=== PATIENT | male | born 1950 ===

== ENCOUNTER 2022-08-19 07:38 | Inpatient (IN) ==
--- NOTE | 2022-08-16 09:46 | XRay Report ---
CLINICAL INFORMATION: Preop COMPARISON: None. TECHNIQUE: PA and lateral views were obtained. FINDINGS: The heart size, mediastinum and pulmonary vessels are unremarkable. The 10 mm relatively dense nodule overlying the left midlung and posterior eighth rib. This may be a bone island rather than a lung nodule. No definite pulmonary abnormalities.. There are no effusions. The bones and soft tissues are within normal limits. IMPRESSION: 10 mm left midlung nodule. It overlies the posterior left eighth rib and may represent bone island. Suggest left rib films Interpreted and Authenticated by: Nathaniel Pace 08/16/22
[2022-08-16 12:05] LABS: Basophils # (Auto) 0.06 K/mcL (0.00-0.30); Basophils % (Auto) 1.2 % (0.0-2.0); Eosinophils # (Auto) 0.14 K/mcL (0.00-0.70); Eosinophils % (Auto) 2.8 % (0.0-7.0); Hematocrit 45.7 % (40.1-51.0); Hemoglobin 16.1 g/dL (13.7-17.5); Lymphocytes # (Auto) 1.56 K/mcL (1.50-4.80); Lymphocytes % (Auto) 31.2 % (15.5-49.0); Mean Cell Volume 85.9 fL (80.0-100.0); Mean Corpuscular HGB Conc 35.2 g/dL (31.0-36.0); Mean Platelet Volume 8.9 fL (8.8-12.5); Monocytes # (Auto) 0.42 K/mcL (0.10-0.90); Monocytes % (Auto) 8.4 % (1.0-12.0); Neutrophils % (Auto) 56.2 % (38.0-78.0); Platelet Count 412 K/mcL (140-440); RBC 5.32 M/mcL (4.63-6.08); Red Cell Distribution Width 13.6 % (11.5-14.5)
[2022-08-16 12:11] LABS: Partial Thromboplastin Time 29.6 sec (20.0-37.0); Prothrombin Time 13.1 sec (11.9-14.5)
[2022-08-16 12:12] LABS: ALT/SGPT 21 U/L (<40); AST/SGOT 18 U/L (<40); Albumin 4.4 gm/dL (3.2-5.2); Albumin/Globulin Ratio 1.8 (1.0-2.3); Alkaline Phosphatase 91 U/L (39-117); Bilirubin,Total 0.4 mg/dL (0.1-1.0); Blood Urea Nitrogen 18 mg/dL (8-23); Calcium 9.1 mg/dL (8.6-10.4); Carbon Dioxide 22 mmol/L (22-30); Chloride 105 mmol/L (96-108); Globulin 2.5 gm/dL (2.2-3.7); Glomerular Filtration Rate 86; Glucose 93 mg/dL (70-105)
--- NOTE | 2022-08-17 07:31 | EKG ---
[facility] Test Date: 2022-08-16 Pat Name: Haile Miranda Department: [facility] Room: Gender: Male Instructional Leader: : 1950 Requested By: Chayo Dietrich Order Number: [id number] Reading MD: Delon Frankel Measurements Intervals Anderson Rate: 62 P: 34 WY: 169 QRS: -3 QRSD: 104 T: 48 QT: 405 QTc: 411 Interpretive Statements Sinus rhythm Minimal ST elevation, anterior leads Electronically Signed On 08-17-2022 7:31:53 PST by Delon Frankel /store/[email or web address]/[id number]
[2022-08-19] MEDS ORDERED: ONDANSETRON 4 MG/2 ML VIAL ONE (08:56)
[2022-08-19] MEDS ORDERED: PROPOFOL 200 MG/20 ML VIAL IV ONE ×2 (08:56→10:40)
[2022-08-19] MEDS ORDERED: LIDOCAINE HCL/PF 100 MG/5 ML SYRINGE IV ONE ×2 (08:56→10:40)
[2022-08-19] MEDS ORDERED: GLYCOPYRROLATE 0.2 MG/ML VIAL IV ONE ×2 (08:56→10:40)
[2022-08-19] MEDS ORDERED: CEFEPIME 2 GM VIAL IV ONE (09:21)
[2022-08-19] MEDS ORDERED: metroNIDAZOLE 500 MG/100 ML BAG IV ONE (09:23)
--- NOTE | 2022-08-19 10:11 | Brief Operative Note ---
Brief Operative Note Date of procedure: 08/19/22 Pre-op diagnosis: f/h colon polyps;f/h colon cancer Post-op diagnosis: same Procedure: colonoscopy; descending colon perforation at 80cm colon stricture;diverticulosis Grafts/Implants: No Anesthesia: MAC Findings: high grade stricture at 80cm would not allow pediatric scope, perforation occurred with the pediatric scope;patient prepared for emergency laparotomy and closure of perforation Complications: other Complications Description: perforation of colon at stricture at 80 cm(descending colon) Surgeon: Chayo Dietrich Estimated blood loss (cc): 0 Specimens Removed/Pathology: none sent Condition: stable Disposition: PACU
[2022-08-19] MEDS ORDERED: ROPIVACAINE HCL/PF 20 ML VIAL IJ ONE (10:40)
[2022-08-19] MEDS ORDERED: KETAMINE 50 MG/ML Syringe (ANEST) IV ONE (10:40)
[2022-08-19] MEDS ORDERED: MAGNESIUM SULFATE 2 GM/50 ML BAG IV ONE (10:40)
[2022-08-19] MEDS ORDERED: PHENYLephrine 1 MG/10 ML SYRINGE (ANEST) ONE (10:40)
[2022-08-19] MEDS ORDERED: fentaNYL 100 MCG/2 ML VIAL IV ONE (10:40)
[2022-08-19] MEDS ORDERED: SUGAMMADEX SODIUM 200 MG/2 ML VIAL IV ONE (10:40)
[2022-08-19] MEDS ORDERED: ROCURONIUM 10 MG/ML ML IV ONE (10:40)
[2022-08-19] MEDS ORDERED: DEXAMETHASONE 10 MG/ML VIAL ONE (10:40)
[2022-08-19] MEDS ORDERED: HYDROmorphone 1 MG/ML SYRINGE ONE (10:40)
[2022-08-19] MEDS ORDERED: MIDAZOLAM 2 MG/2 ML VIAL ONE (10:40)
[2022-08-19] MEDS ORDERED: SUCCINYLCHOLINE 20 MG/ML ML IV ONE (10:40)
[2022-08-19] MEDS ORDERED: fentaNYL 100 MCG/2 ML VIAL IV PRN (11:32)
[2022-08-19] MEDS ORDERED: NALOXONE HCL 0.4 MG/ML VIAL IV PRN (11:32)
[2022-08-19] MEDS ORDERED: LACTATED RINGERS 250 ML IV PRN (11:32)
[2022-08-19] MEDS ORDERED: HYDROmorphone 0.5 MG/0.5 ML SYRINGE IV PRN (11:32)
[2022-08-19] MEDS ORDERED: FLUMAZENIL 0.1 MG/ML ML IV PRN (11:32)
[2022-08-19] MEDS ORDERED: LABETALOL 5 MG/ML ML IV PRN (11:32)
[2022-08-19] MEDS ORDERED: ACETAMINOPHEN 1,000 MG/100 ML BAG IV ONE (11:32)
[2022-08-19] MEDS ORDERED: MEPERIDINE 25 MG/ML VIAL IV PRN (11:32)
[2022-08-19] MEDS ORDERED: METOPROLOL TARTRATE 5 MG/5 ML VIAL IV PRN (11:32)
[2022-08-19] MEDS ORDERED: ONDANSETRON 4 MG/2 ML VIAL IV PRN ×2 (11:32→12:05)
[2022-08-19] MEDS ORDERED: IPRATROPIUM/ALBUTEROL 3 ML AMPUL.NEB NEB PRN (11:32)
[2022-08-19] MEDS ORDERED: METHOCARBAMOL 1,000 MG/10 ML VIAL IV PRN (11:32)
[2022-08-19] MEDS ORDERED: LACTATED RINGERS 1,000 ML IV SCH (11:45)
[2022-08-19] MEDS ORDERED: PROMETHAZINE 25 MG/ML VIAL IV PRN (12:05)
--- NOTE | 2022-08-19 12:05 | Brief Operative Note ---
Brief Operative Note Date of procedure: 08/19/22 Pre-op diagnosis: perforated descending colon from colonoscopy Post-op diagnosis: other (perforated descending colon from colonoscopy) Procedure: exploratory laparotomy with closure of colon perforation;peritoneal lavage Grafts/Implants: No Anesthesia: GETA Findings: small opening descending colon without fecal contamination Complications: none Surgeon: Chayo Dietrich Estimated blood loss (cc): 0 Specimens Removed/Pathology: none sent Condition: stable Disposition: PACU
[2022-08-19] MEDS: 0.9 % SODIUM CHLORIDE 10 ML SYRINGE IV SCH ×2 (14:50→20:36)
[2022-08-19] MEDS: METOCLOPRAMIDE 10 MG/2 ML VIAL IV SCH ×2 (17:15→23:45)
[2022-08-19] MEDS: 0.9 % SODIUM CHLORIDE 1,000 ML IV SCH (17:15)
[2022-08-19] MEDS: CEFEPIME 1 GM VIAL IV SCH ×2 (17:15→23:45)
[2022-08-19] MEDS: metroNIDAZOLE 500 MG/100 ML BAG IV SCH ×2 (17:15→23:46)
[2022-08-19] MEDS: ACETAMINOPHEN 1,000 MG/100 ML BAG IV SCH (19:20)
[2022-08-19] MEDS: DOCUSATE SODIUM 100 MG CAPSULE PO SCH (20:36)
[2022-08-19] MEDS: SENNOSIDES 1 TABLET PO SCH (20:36)
[2022-08-19] MEDS ORDERED: traZODone HCL 50 MG TABLET PO PRN (21:00)
[2022-08-20] MEDS: 0.9 % SODIUM CHLORIDE 1,000 ML IV SCH ×4 (00:43→11:01)
[2022-08-20] MEDS: ACETAMINOPHEN 1,000 MG/100 ML BAG IV SCH ×3 (01:00→12:27)
[2022-08-20] MEDS: metroNIDAZOLE 500 MG/100 ML BAG IV SCH ×3 (05:43→18:32)
[2022-08-20] MEDS: METOCLOPRAMIDE 10 MG/2 ML VIAL IV SCH ×3 (05:44→17:52)
[2022-08-20] MEDS: CEFEPIME 1 GM VIAL IV SCH ×3 (05:44→23:03)
[2022-08-20] MEDS: 0.9 % SODIUM CHLORIDE 10 ML SYRINGE IV SCH ×2 (05:45→13:48)
[2022-08-20 06:21] LABS: Basophils # (Auto) 0.03 K/mcL (0.00-0.30); Basophils % (Auto) 0.2 % (0.0-2.0); Eosinophils # (Auto) 0.01 K/mcL (0.00-0.70); Eosinophils % (Auto) 0.1 % (0.0-7.0); Hematocrit 42.1 % (40.1-51.0); Hemoglobin 14.9 g/dL (13.7-17.5); Lymphocytes # (Auto) 1.81 K/mcL (1.50-4.80); Lymphocytes % (Auto) 13.8 % (15.5-49.0); Mean Cell Volume 85.9 fL (80.0-100.0); Mean Corpuscular HGB Conc 35.4 g/dL (31.0-36.0); Mean Platelet Volume 8.9 fL (8.8-12.5); Monocytes # (Auto) 0.92 K/mcL (0.10-0.90); Neutrophils % (Auto) 78.6 % (38.0-78.0); Platelet Count 331 K/mcL (140-440); Red Cell Distribution Width 13.7 % (11.5-14.5); WBC 13.1 K/mcL (4.5-11.0)
[2022-08-20] MEDS: HYDROmorphone 1 MG/ML SYRINGE IV PRN ×5 (06:38→20:55)
[2022-08-20 06:46] LABS: ALT/SGPT 16 U/L (<40); AST/SGOT 15 U/L (<40); Albumin 3.4 gm/dL (3.2-5.2); Albumin/Globulin Ratio 1.4 (1.0-2.3); Alkaline Phosphatase 53 U/L (39-117); Bilirubin,Direct < 0.2 mg/dL (0-0.3); Bilirubin,Total 0.8 mg/dL (0.1-1.0); Blood Urea Nitrogen 11 mg/dL (8-23); Calcium 8.5 mg/dL (8.6-10.4); Carbon Dioxide 21 mmol/L (22-30); Chloride 102 mmol/L (96-108); Globulin 2.5 gm/dL (2.2-3.7); Glomerular Filtration Rate 90; Glucose 98 mg/dL (70-105); Lactate Dehydrogenase 155 U/L (135-225); Phosphorous 3.4 mg/dL (2.5-4.5); Triglycerides 74 mg/dL (<150); Uric Acid 5.1 mg/dL (2.5-8.0)
[2022-08-20] MEDS: PANTOPRAZOLE 40 MG TABLET PO SCH (07:34)
[2022-08-20] MEDS: DOCUSATE SODIUM 100 MG CAPSULE PO SCH ×2 (08:40→20:55)
--- NOTE | 2022-08-20 13:41 | General Surgery Progress Note ---
SUBJECTIVE Subjective Patient information: Note initiated : 08/20/22 at 1:37 pm Service Date, if different from initiated Date: [] Patient: Haile Miranda 72 y/o M admitted on 08/19/22 for Colonoscopy/Post op complications. Chief Complaint: [] Principal diagnosis: Perforation of descending colon Interval history: Patient is doing well. He has no complaints. He has been afebrile. He denies any increase in abdominal pain. He denies any nausea. White blood count is 13.1, hemoglobin 14.9, hematocrit 42.4. Constitutional Vitals: Vital Signs Temp Pulse Resp BP Pulse Ox O2 Del Method O2 Flow Rate 98.7 F 62 16 136/83 97 Room Air 0 08/20/22 11:51 08/20/22 11:51 08/20/22 11:51 08/20/22 11:51 08/20/22 11:51 08/20/22 11:51 08/19/22 12:36 Period Temp Pulse Resp BP Sys/Obrien Pulse Ox O2 Del Method O2 Flow Rate Last 24 Hr 98.4 F-98.8 F 62-100 16-18 128-160/72-96 95-98 Room Air-Room Air Intake and Output 08/20/22 08/20/22 08/20/22 03:59 11:59 19:59 Intake Total 1400 1400 200 Output Total 1400 900 Balance 0 500 200 Weight 193 lb 9.6 oz Intake & Output: Intake & Output 08/20/22 08/20/22 08/20/22 03:59 11:59 19:59 Intake Total 1400 1400 200 Output Total 1400 900 Balance 0 500 200 Weight 193 lb 9.6 oz Intake: IV 1300 1200 200 Sodium Chloride 0.9% 1,000 ml @ 1000 1000 150 mls/hr IV .[id number] [facility] Rx#: [id number] Oral 100 200 Output: Void Amount 1400 900 Other: Urine Appearance Clear Clear Urine Color Yellow Yellow Urine Odor Normal Normal Stool Consistency Loose Neck Neck exam: Present normal inspection; Absent lymphadenopathy or tenderness Respiratory Respiratory exam: Present normal respiratory exam and CTAB Cardiovascular Cardiovascular exam: Present normal rate and rhythm, RRR, +S1 and +S2; Absent JVD GI/Abdominal GI/Abdominal exam: Present normal bowel sounds and soft; Absent distended Additional comments: Midline incision is unremarkable Extremities Exam Extremities exam: Present normal inspection and neurovascular intact Neurological Exam Neurological exam: Present oriented X3; Absent motor sensory deficit Psychiatric Psychiatric exam: Present normal affect and normal mood A/P Assessment and plan (1) Perforation of colon as colonoscopy complication: Status: Acute (2) Family history of colonic polyps: Status: Acute (3) Hypertension, essential: Status: Chronic Plan Patient continues to do well. His diet is advanced to full liquids. If he remains asymptomatic he will probably be discharged home tomorrow. Time Spent With Patient Time: Total time spent is greater than 50% in coordination of care (as documented) at patient's floor/unit and/or counseling patient:
[2022-08-20] MEDS: SENNOSIDES 1 TABLET PO SCH (20:55)
[2022-08-21] MEDS: METOCLOPRAMIDE 10 MG/2 ML VIAL IV SCH ×3 (00:03→11:11)
[2022-08-21] MEDS: metroNIDAZOLE 500 MG/100 ML BAG IV SCH ×3 (00:03→11:11)
[2022-08-21] MEDS: 0.9 % SODIUM CHLORIDE 10 ML SYRINGE IV SCH ×4 (00:04→13:57)
[2022-08-21] MEDS: HYDROmorphone 1 MG/ML SYRINGE IV PRN ×2 (03:21→06:47)
[2022-08-21] MEDS: CEFEPIME 1 GM VIAL IV SCH ×2 (05:22→13:56)
[2022-08-21 06:36] LABS: Basophils # (Auto) 0.07 K/mcL (0.00-0.30); Basophils % (Auto) 0.7 % (0.0-2.0); Eosinophils # (Auto) 0.14 K/mcL (0.00-0.70); Eosinophils % (Auto) 1.5 % (0.0-7.0); Hematocrit 38.6 % (40.1-51.0); Hemoglobin 13.7 g/dL (13.7-17.5); Lymphocytes # (Auto) 1.54 K/mcL (1.50-4.80); Lymphocytes % (Auto) 16.1 % (15.5-49.0); Mean Cell Volume 85.2 fL (80.0-100.0); Mean Corpuscular HGB Conc 35.5 g/dL (31.0-36.0); Mean Platelet Volume 8.7 fL (8.8-12.5); Monocytes # (Auto) 0.72 K/mcL (0.10-0.90); Monocytes % (Auto) 7.5 % (1.0-12.0); Platelet Count 325 K/mcL (140-440); RBC 4.53 M/mcL (4.63-6.08); Red Cell Distribution Width 13.6 % (11.5-14.5); WBC 9.6 K/mcL (4.5-11.0)
[2022-08-21] MEDS: PANTOPRAZOLE 40 MG TABLET PO SCH (06:38)
[2022-08-21] MEDS ORDERED: LOSARTAN 50 MG TABLET PO ONE (08:17)
[2022-08-21] MEDS ORDERED: oxyCODONE 10 MG TAB.ER.12H PO PRN (08:17)
[2022-08-21] MEDS: DOCUSATE SODIUM 100 MG CAPSULE PO SCH (08:33)
[2022-08-21] MEDS ORDERED: oxyCODONE HCL 5 MG TABLET PO PRN (08:45)
--- NOTE | 2022-08-21 13:22 | Discharge Summary ---
Discharge Provider Provider IMPORTANT FOLLOW-UP INFORMATION FOR PCP: Patient information: Note initiated : 08/21/22 at 1:12 pm Service Date, if different from initiated Date: [] Patient: Haile Miranda 72 y/o M admitted on 08/19/22 for Colonoscopy/Post op complications. Chief Complaint: [] Date of admission: 08/19/22 12:52 Discharge date: 08/21/22 Primary care physician: Darrick Carvalho Admitting clinician: Chayo Dietrich Attending physician on admission: Chayo Dietrich Attending physician on discharge: Chayo Dietrich Discharging clinician: Chayo Dietrich COURSE Hospital Course Hospital course: 72-year-old male with history of perforation of colon of his left colon during colonoscopy. The patient was noted to have a stricture in the mid descending colon so the adult scope was changed to pediatric scope. As needed pediatric scope was being Maneuvered It was noted that I could see visceral fat in the lumen and. There because the single small perforation the scope was removed and family were notified that he will need to have emergency laparotomy for closure of the tear. He was noted to have a very small red area in his distal desce nding colon about the size of the pediatrics. this area was closed in 2 layers with 2-0 Monocryl and 2-0 Prolene. Inspection of the remainder of the left colon revealed a superficial serosal tear in the mid sigmoid. The perforation and the serosal tear occurred in areas where the colon was angulated due to adhesions. There is no history of any type of colon surgery in the past. During the surgery there was essentially no significant contamination but the peritoneal cavity was copiously irrigated. No drain was placed. He has done well in the postoperative period. He has been afebrile and his white blood count is 9.6. He had a small bowel movement yesterday and is passing flatus. Patient is stable for discharge home. Discharge diagnosis: Colonic perforation as a complication of colonoscopy Secondary discharge diagnosis: Family history of colon polyps Essential hypertension Depression Reason for admission: Postoperative closure of colonic perforation Procedures: Exploratory laparotomy with closure of colonic perforation and peritoneal lavage Pertinent studies/significant findings: None Complications: None Time Spent with Patient Time attestation: Total time spent providing and/or coordinating discharge services: Time spent: Less than 30 minutes Physical Examination Vital Signs Vital signs: Temp Pulse Resp BP Pulse Ox O2 Del Method O2 Flow Rate 97.5 F 83 16 162/89 95 Room Air 0 08/21/22 07:08 08/21/22 07:08 08/21/22 07:08 08/21/22 07:08 08/21/22 07:08 08/21/22 07:08 08/19/22 12:36 General physical appearance General physical exam: well developed, well nourished, no distress and no pain Eyes Eye exam: PERRL and normal ocular movement ENT ENT exam: normal mucosa Head Head exam IM: Present atraumatic, normal inspection and normocephalic Neck Neck exam: no masses, no bruits, trachea midline, no lymphadenopathy and no fredo ous distension Cardiovascular Cardiovascular exam IM: Present normal rate and rhythm, JVD, RRR, +S1 and +S2; Absent gallop Respiratory Respiratory exam: normal expansion, normal respiratory effort and clear to auscultation Abdomen Abdomen: Present soft, tender, bowel sounds (Good active bowel sounds) and surgical scars (Slight weeping of serous fluid from the incision) Integumentary Integumentary: Present no rash, no growths and no abnormal pigmentation Neurologic Neurologic: Present normal coordination and normal sensation Musculoskeletal Musculoskeletal: Present normal gait and normal posture Psychiatric Psychiatric: Present oriented to time, oriented to person, oriented to place, speech is normal and memory intact Discharge Plan Patient/Caregiver Discharge Instructions Activity: increase activity as tolerated Diet: Full Liquid Prescriptions: New ciprofloxacin HCl [ciprofloxacin HCl] 500 mg tablet 500 mg PO BID Qty: 20 0RF oxycodone-acetaminophen [Endocet] 10-325 mg tablet 1 tab PO Q4H PRN (Reason: Pain) Qty: 30 0RF metronidazole 500 mg tablet 500 mg PO TID MDD I Qty: 30 0RF Continued losartan 100 mg tablet 100 mg PO QDAY ibuprofen [Wal-Profen] 200 mg tablet 200 mg PO Q6HP PRN (Reason: Pain) cholecalciferol (vitamin D3) 25 mcg (1,000 unit) tablet 25 mcg PO QDAY glucosamine-chondroitin [Osteo Bi-Flex] 250-200 mg Tablet 2 tab PO QDAY Rx Instructions: give after food/meal fish,bora,flax oils-om3,6,9no1 [Triple [place] 3-6-9] 400-400-400 mg Capsule 1 cap PO QDAY Prescription drug monitoring program results: PDMP not reviewed Follow Up Plan Patient Disposition: Home, Self-Care Prognosis: Good Rehab Potential: Good I certify that the patient requires SNF services: No Overall status at discharge: patient is progressing back to baseline Discharge Orders: Discharge Order (Routine); Ordered 08/21/22 Ordered By: Chayo Dietrich Pending Pending Pending: Resuscitation Status Resuscitate (Full Code) Diet Full Liquid Diet Start TueAug 20 1327 Cefepime HCl (Cefepime 1 Gm Vial) 1 gm IV Q8H [facility]; Protocol Last Admin: 08/21/22 05:22 Dose: 1 gm Documented By: Admin: 08/20/22 23:03 Dose: 1 gm Documented By: Admin: 08/20/22 13:47 Dose: 1 gm Documented By: Admin: 08/20/22 05:44 Dose: 1 gm Documented By: Admin: 08/19/22 23:45 Dose: 1 gm Documented By: Admin: 08/19/22 17:15 Dose: 1 gm Documented By: JACKY Docusate Sodium (Docusate Sodium 100 Mg Capsule) 100 mg PO BID [facility] Last Admin: 08/21/22 08:33 Dose: 100 mg Documented By: Admin: 08/20/22 20:55 Dose: 100 mg Documented By: Admin: 08/20/22 08:40 Dose: 100 mg Documented By: Admin: 08/19/22 20:36 Dose: 100 mg Documented By: VANNESA Hydromorphone HCl (Hydromorphone 1 Mg/Ml Syringe) 1 mg IV Q2HP PRN; Protocol PRN Reason: Per Pain Protocol Last Admin: 08/21/22 06:47 Dose: 1 mg Documented By: Admin: 08/21/22 03:21 Dose: 1 mg Documented By: Admin: 08/20/22 20:55 Dose: 1 mg Documented By: Admin: 08/20/22 17:51 Dose: 1 mg Documented By: Admin: 08/20/22 14:25 Dose: 1 mg Documented By: Admin: 08/20/22 11:00 Dose: 1 mg Documented By: Admin: 08/20/22 06:38 Dose: 1 mg Documented By: BENJAMIN Metronidazole (Flagyl) 500 mg in 100 mls @ 100 mls/hr IV Q6H [facility]; Protocol Last Infusion: 08/21/22 12:18 Dose: 0 mls/hr Documented By: Admin: 08/21/22 11:11 Dose: 100 mls/hr Documented By: Infusion: 08/21/22 06:25 Dose: 0 mls/hr Documented By: Admin: 08/21/22 05:22 Dose: 100 mls/hr Documented By: Infusion: 08/21/22 04:09 Dose: 0 mls/hr Documented By: Admin: 08/21/22 00:03 Dose: 100 mls/hr Documented By: Infusion: 08/20/22 19:42 Dose: 0 mls/hr Documented By: Admin: 08/20/22 18:32 Dose: 100 mls/hr Documented By: Infusion: 08/20/22 13:31 Dose: 0 mls/hr Documented By: Admin: 08/20/22 11:25 Dose: 100 mls/hr Documented By: Infusion: 08/20/22 08:38 Dose: 0 mls/hr Documented By: Admin: 08/20/22 05:43 Dose: 100 mls/hr Documented By: Infusion: 08/20/22 02:15 Dose: 0 mls/hr Documented By: Admin: 08/19/22 23:46 Dose: 100 mls/hr Documented By: Infusion: 08/19/22 18:15 Dose: 0 mls/hr Documented By: Admin: 08/19/22 17:15 Dose: 100 mls/hr Documented By: JACKY Metoclopramide HCl (Metoclopramide 10 Mg/2 Ml Vial) 10 mg IV Q6 [facility] Last Admin: 08/21/22 11:11 Dose: 10 mg Documented By: Admin: 08/21/22 05:22 Dose: 10 mg Documented By: Admin: 08/21/22 00:03 Dose: 10 mg Documented By: Admin: 08/20/22 17:52 Dose: 10 mg Documented By: Admin: 08/20/22 11:24 Dose: 10 mg Documented By: Admin: 08/20/22 05:44 Dose: 10 mg Documented By: Admin: 08/19/22 23:45 Dose: 10 mg Documented By: Admin: 08/19/22 17:15 Dose: 10 mg Documented By: JACKY Oxycodone HCl (Oxycodone Hcl 5 Mg Tablet) 10 mg PO Q4HP PRN; Protocol PRN Reason: Per Pain Protocol Last Admin: 08/21/22 11:19 Dose: 10 mg Documented By: VÍCTOR Pantoprazole Sodium (Pantoprazole 40 Mg Tablet) 40 mg PO QAMAC [facility] Last Admin: 08/21/22 06:38 Dose: 40 mg Documented By: Admin: 08/20/22 07:34 Dose: 40 mg Documented By: Co-signed By: JULIANO Senna (Sennosides 1 Tablet) 2 tab PO HS [facility] Last Admin: 08/20/22 20:55 Dose: 2 tab Documented By: Admin: 08/19/22 20:36 Dose: 2 tab Documented By: VANNESA Sodium Chloride (0.9 % Sodium Chloride 10 Ml Syringe) 10 ml IV Q8 [facility] Last Admin: 08/21/22 05:22 Dose: 10 ml Documented By: Admin: 08/21/22 03:21 Dose: 10 ml Documented By: Admin: 08/21/22 00:04 Dose: 10 ml Documented By: Admin: 08/20/22 13:48 Dose: 10 ml Documented By: Admin: 08/20/22 05:45 Dose: 10 ml Documented By: Admin: 08/19/22 20:36 Dose: Not Given Documented By: Admin: 08/19/22 14:50 Dose: 10 ml Documented By: JACKY Trazodone HCl (Trazodone Hcl 50 Mg Tablet) 50 mg PO HSP PRN PRN Reason: Insomnia Last Admin: 08/21/22 01:01 Dose: 50 mg Documented By: KAMI Shift Summary 08/21/22 04:35 Shift Summary by Cher Siddiqui Primary Diagnosis: Primary Diagnosis: Bowel perf. at colon stricture descending colon. Registration Status:MS-IP Date of Surgery (if applicable):08/19 Pertinent Medical Dx/Issue(s):F/H Colon CA, patient with Hx Prostate CA, Diverticulosis Med management (antibiotics, diuretics, BP):Maxipime, Flagyll, Reglan, Protonix Skin/Wound Care: Midline incision w/brannon, transparent dressing Vital Signs with Trends: VSS, afebrile. O2, liter flow/saturations:RA 98% Pain management (acute vs. chronic): Dilaudid x2; pain increases with activity Lab/Rad (abnormals, trends): Neuro/Mental Status: A/O x4 and very pleasant Urinary Elimination Device: Voids/urinal with some dribbling. Urinary output greater than 30mL/hr? Yes. Date of last BM: 08/19/22 Lines/Tubes: Right FA SL Activity: Independent in room. Recommendations/questions for MD: Discharge Plan (needs, disposition, etc): Home possibly tomorrow 08/21 Patient up Independent in room. Pt is very pleasant. Pt is currently on Full liquid diet. Initialized on 08/21/22 04:35 - END OF NOTE
--- NOTE | 2022-08-23 16:26 | Colonoscopy Procedure Note ---
DATE OF PROCEDURE: 08/19/2022 PREOPERATIVE DIAGNOSES: 1. Family history of colon polyps. 2. Family history of colon cancer. PREOPERATIVE DIAGNOSES: 1. Family history of colon polyps. 2. Family history of colon cancer. 3. Complication of colon perforation. PROCEDURE: Colonoscopy to the descending colon with colon stricture at 80 cm, colon perforation at 80 cm, diverticulosis. SURGEON: Chayo Dietrich M.D. FINDINGS: High-grade stricture at 80 cm, which would not allow the adult scope. The pediatric scope was tried and with maneuvering the pediatric scope complete perforation was carried out. It was noted immediately. The patient's family was contacted and I got permission, verbal and written for emergency laparotomy. The patient was prepared with IV antibiotics and arrangements were made for laparotomy. He was transferred to PACU for holding until the room could be prepared. The patient was clinically stable throughout the procedure. LCS:trey Job ID: [id number] Doc ID: [id number] Chayo Dietrich M.D.
--- NOTE | 2022-08-23 16:32 | Operative Note ---
DATE OF OPERATION: 08/19/2022 PREOPERATIVE DIAGNOSIS: Perforated descending colon as a result of colonoscopy. POSTOPERATIVE DIAGNOSIS: Perforated descending colon as a result of colonoscopy. PROCEDURE: Exploratory laparotomy with closure of colon perforation and peritoneal lavage. SURGEON: Chayo Dietrich M.D. FINDINGS: Small opening in the descending colon without fecal contamination. DESCRIPTION OF PROCEDURE: Under general anesthesia, the patient's abdomen was prepped and draped in a sterile field. Lower midline incision was made. Exploration of the peritoneal cavity did not reveal any significant contamination. The area was irrigated with 2 liters of saline. No fecal contaminants were noted. The colon was inspected. There were some adhesions of the sigmoid colon, which was somewhat redundant. These were taken down. The perforation was noted at about mid colon. It was about 1 cm. I initially tried to close it with a stapler, but this was unsuccessful, so it was closed transversely using a running inner layer of 3-0 Monocryl, an outer layer of running 3-0 Prolene. There was a superficial linear tear in the serosa, which measured about 2 cm. The rest of the wall of the bowel was fully intact. More irrigation was carried out. The peritoneum and fascia were closed with running #1 Prolene. Subcutaneous tissue was closed with 2-0 Monocryl. Skin was closed with brannon. Sterile dressing was placed. The patient tolerated the procedure well. He was awakened, transferred to a bed, and taken to the postanesthetic care unit in satisfactory condition. LCS:trey Job ID: [id number] Doc ID: [id number] Chayo Dietrich M.D.
== END 2022-08-21 14:30 | disposition home or self-care (01) | DRG 908 ==
LOC: SSSU 07:38 → MEDSUR 12:52
PROVIDERS: ADMIT Family Medicine Adult Medicine; ATTEND Family Medicine Adult Medicine